=== PATIENT | female | born 1980 | race Caucasian/White ===

== ENCOUNTER 2017-06-28 22:05 | Emergency (ER) | payer SELFPAY ==
[~2017-06-28] VITALS: Ht 167.6 cm; Wt 63.5 kg
--- NOTE | 2017-06-28 22:10 | NUR ---
TO BED 7 A 36 YO FEMALE PT STATES SHE IS 7 WEEKS AND IS HAVING VAGINAL BLEEDING WITH CLOTS. LPM 04/13/17, GI. VSS. NONDIAPHORETIC. AMBULATORY WITH STEADY GAIT. GOWNED. AWAITING FOR ER MD JUAREZ.
[2017-06-28] MEDS ORDERED: IV NS 0.9% 1,000 ML BAG IV ONE (23:30)
--- NOTE | 2017-06-28 23:50 | NUR ---
started a saline lock on the lac g20, blood drawn and sent to lab.
[2017-06-29 00:05] LABS: BASOPHILS % (AUTO) 0.3 % (0.0-2.0); EOSINOPHILS # (AUTO) 0.4 /CMM (0.0-0.7); EOSINOPHILS % (AUTO) 3.7 % (0.0-6.0); HEMATOCRIT 40 % (33-45); LYMPHOCYTES # (AUTO) 2.6 /CMM (0.8-4.8); LYMPHOCYTES % (AUTO) 24.1 % (20.0-44.0); MEAN CORPUSCULAR HEMOGLOBIN 29 PG (26.0-33.0); MEAN CORPUSCULAR HGB CONC 33 g/dl (31.0-36.0); MEAN CORPUSCULAR VOLUME 89 fL (82-100); MONOCYTES # (AUTO) 0.5 /CMM (0.1-1.30); MONOCYTES % (AUTO) 4.5 % (2.0-12.0); NEUTROPHILS # (AUTO) 7.4 /CMM (1.8-8.9); NEUTROPHILS % (AUTO) 67.4 % (43.0-81.0); PLATELET COUNT (AUTO) 332 /CMM (150-450); RDW COEFFICIENT OF VARIATION 12.8 (11.5-15.0); RED BLOOD CELL COUNT(AUTO) 4.46 MIL/uL (4.0-5.2)
[2017-06-29 00:08] LABS: BILIRUBIN,URINE NEGATIVE (NEGATIVE); BLOOD, URINE 3+ Ery/uL (NEGATIVE); COLOR,URINE YELLOW (YELLOW); KETONES,URINE NEGATIVE (NEGATIVE); LEUKOCYTE ESTERASE ,URINE NEGATIVE (NEGATIVE); NITRITE, URINE NEGATIVE (NEGATIVE); PROTEIN,URINE NEGATIVE (NEGATIVE); UGLUCOSE NEGATIVE (NEGATIVE); UROBILINOGEN,URINE 0.2 EU/dL (0.2)
[2017-06-29 00:10] LABS: APPEARANCE,URINE HAZY (CLEAR)
[2017-06-29 00:12] LABS: CALCIUM, SERUM 8.6 mg/dL (8.5-10.1); CREATININE 0.6 mg/dL (0.6-1.3); POTASSIUM 3.4 mmol/L (3.5-5.1)
[2017-06-29 00:17] LABS: INR 0.93 (0.87-1.13); PROTHROMBIN TIME 9.9 SECS (9.5-12.7)
[2017-06-29 00:18] LABS: BACTERIA,URINE 2+ /HPF (None Seen); SQUAMOUS EPITHELIAL CELL,UR Few /HPF (None Seen); URINE AMORPHOUS URATE Few /HPF (None Seen); WBC,URINE 0-2 /HPF (0-3)
--- NOTE | 2017-06-29 00:21 | NUR ---
TECH AT BEDSIDE FOR PELVIC JARON.
[2017-06-29] MEDS ORDERED: MISCELLANEOUS MED 1 EA EA XX ONE (01:00)
--- NOTE | 2017-06-29 02:34 | NUR ---
IV removed. Catheter intact and site benign. Pressure and 4x4 applied to site. No bleeding noted. Patient discharged to home in stable condition. Written and verbal after care instructions given. Patient verbalizes understanding of instruction. Patient is ambulatory with steady gait, accompanied by . No further complaints.
[2017-06-29 02:35] VITALS: BP 120/68
== END 2017-06-29 02:36 | disposition home or self-care (01) ==
LOC: ER 22:07
DX: O20.0 Threatened abortion (principal); Z3A.09 9 weeks gestation of pregnancy
CPT/HCPCS: 36415 ×2; 36430; 76805; 80048; 81001; 84702; 85025; 85730; 87086; 96360; 99285; A4606; J2790; J7030; Z7610; 81000-TC; P9016-BL

== ENCOUNTER 2017-06-29 13:01 | Emergency (ER) | payer SELFPAY ==
[~2017-06-29] VITALS: Ht 167.6 cm; Wt 63.5 kg
--- NOTE | 2017-06-29 13:01 | NUR ---
DIZZINESS AND VAGINAL BLEEDING WORSENING SINCE SHE WAS DISCHARGED YESTERDAY FOR MISCARRIAGE. NAD NOTED. PT AAO X4, AMB WITH STEADY GAIT. RR EVEN AND UNLABORED. VSS. PENDING MD JUAREZ.
[2017-06-29] MEDS ORDERED: ONDANSETRON HCL/PF 4 MG/2 ML VIAL ONE (13:17)
[2017-06-29 13:18] LABS: BASOPHILS % (AUTO) 0.5 % (0.0-2.0); EOSINOPHILS # (AUTO) 0.3 /CMM (0.0-0.7); EOSINOPHILS % (AUTO) 3.5 % (0.0-6.0); HEMATOCRIT 38 % (33-45); HEMOGLOBIN 12.7 g/dL (11.5-14.8); LYMPHOCYTES # (AUTO) 2.2 /CMM (0.8-4.8); LYMPHOCYTES % (AUTO) 22.7 % (20.0-44.0); MEAN CORPUSCULAR HEMOGLOBIN 29 PG (26.0-33.0); MEAN CORPUSCULAR HGB CONC 33 g/dl (31.0-36.0); MEAN CORPUSCULAR VOLUME 88 fL (82-100); MONOCYTES # (AUTO) 0.5 /CMM (0.1-1.30); NEUTROPHILS # (AUTO) 6.9 /CMM (1.8-8.9); NEUTROPHILS % (AUTO) 68.3 % (43.0-81.0); PLATELET COUNT (AUTO) 331 /CMM (150-450); RDW COEFFICIENT OF VARIATION 12.2 (11.5-15.0); RED BLOOD CELL COUNT(AUTO) 4.32 MIL/uL (4.0-5.2); WHITE BLOOD COUNT (AUTO) 9.9 K/uL (4.3-11.0)
[2017-06-29] MEDS ORDERED: HYDROMORPHONE 1 MG/1 ML DISP.SYRIN ONE (13:18)
[2017-06-29 13:26] LABS: CALCIUM, SERUM 8.2 mg/dL (8.5-10.1); CREATININE 0.8 mg/dL (0.6-1.3); POTASSIUM 3.6 mmol/L (3.5-5.1)
[2017-06-29] MEDS ORDERED: ONDANSETRON HCL/PF 4 MG/2 ML VIAL IVP ONE (13:30)
[2017-06-29] MEDS ORDERED: HYDROMORPHONE INJ 2 MG/ML DISP.SYRIN IV ONE (13:30)
[2017-06-29] MEDS ORDERED: IV NS 0.9% 1,000 ML BAG IV ONE (13:30)
--- NOTE | 2017-06-29 14:00 | NUR ---
FELISA SCIENTIFIC AIDE AT BEDSIDE FOR PELVIC EXAM
[2017-06-29 15:08] VITALS: BP 103/68
--- NOTE | 2017-06-29 15:09 | NUR ---
DCIV removed. Catheter intact and site benign. Pressure and 4x4 applied to site. No bleeding noted.Patient discharged to home in stable condition. Written and verbal after care instructions given. Patient verbalizes understanding of instruction.
== END 2017-06-29 15:09 | disposition home or self-care (01) ==
LOC: ER 13:02
DX: O03.9 Complete or unspecified spontaneous abortion without complication (principal)
CPT/HCPCS: 36415; 76856-TC; 80048-TC; 85025-TC; A4606; J1170; J2405; J7030; Z7610

== ENCOUNTER 2025-04-23 05:29 | Emergency (ER) | payer MEDICAID, OTHER ==
[~2025-04-23] VITALS: Ht 157.5 cm; Wt 59.0 kg
[2025-04-23] MEDS ORDERED: METH4TAB17 PO (06:34)
[2025-04-23 06:38] VITALS: BP 101/72; TEMP 98.3; O2SAT 98
== END 2025-04-23 06:38 | disposition home or self-care (01) ==
LOC: ER 05:41
DX: L25.3 Unspecified contact dermatitis due to other chemical products (principal)